=== PATIENT | male | born 1985 | race Caucasian/White ===

== ENCOUNTER 2022-05-23 10:00 | Emergency (ER) | payer OTHER ==
[2022-05-23 10:16] VITALS: BP 125/76; PULSE 105; RESP 18; TEMP 98.6; BMI 37.5
== END 2022-05-23 12:50 | disposition home or self-care (01) ==
LOC: JERFT 10:00
DX: J02.9 Acute pharyngitis, unspecified (principal)
CPT/HCPCS: 0241U-QW; 99283-25